=== PATIENT | male | born 1965 | race Caucasian/White ===

== ENCOUNTER 2019-03-02 04:25 | Emergency (ER) | payer OTHER ==
[~2019-03-02] VITALS: Ht 167.6 cm; Wt 63.5 kg
--- NOTE | 2019-03-02 04:25 | NUR ---
53 Y/O MALE BIB EMS PRESENTS TO ED WITH C/O CHOKING AT HOME ON A [place]. FAMILY CALLED 911. LUNGS CLEAR BILAT THROUGHOUT. NO SOB/DYSPNEA. BROTHER STATES PT HAS HAD FREQUENT ISSUES WITH SWALLOWING BUT PT HAS NOT BEEN REEVALUATED BY A PCP. PT IS AMBULATORY WITH [facility].
--- NOTE | 2019-03-02 04:25 | NUR ---
Natalya robledo in [facility] - 03/02/19 at 0434 by JOSEPH PT MYLES ALS. TAKEN TO BED 3
--- NOTE | 2019-03-02 04:25 | NUR ---
PT BIBA ALS. TAKEN TO BED 3 Addendum: 03/02/19 at 0438 by JOSEPH PT TAKEN TO BED 2
--- NOTE | 2019-03-02 04:30 | NUR ---
PT GIVEN 4 OZ OF WATER. PT SWALLOWED WITHOUT DIFFICULTY. LUNGS CONTINUE TO BE CLEAR THROUGHOUT. O2SAT 98% @[facility]. ER MD AWARE. CONTINUE TO MONITOR.
[2019-03-02 04:33] VITALS: BP 159/97
--- NOTE | 2019-03-02 05:20 | NUR ---
Dr. Gandara examining patient.
--- NOTE | 2019-03-02 05:30 | NUR ---
DISCHARGE PAPERS GIVEN TO PT. SWALLOWING INTACT. INSTRUCTED TO F/U WITH PCP AND WHEN TO RETURN TO ER. PT VERBALLIZED UNDERSTANDING OF DC INSTRUCTIONS. ALL QUESTIONS ANSWERED. AMBULATED OUT OF ED WITH WALKER. ACCOMPANIED BY BROTHER.
== END 2019-03-02 05:30 | disposition home or self-care (01) ==
LOC: MED 04:25
DX: R09.89 Other specified symptoms and signs involving the circulatory and respiratory systems (principal)
CPT/HCPCS: 71045; 99283; Q0092